=== PATIENT | female | born 1955 | race Caucasian/White ===

== ENCOUNTER → 2020-03-18 15:45 | Outpatient (CLI) | payer OTHER, SELFPAY ==
[2020-03-18 16:38] LABS: COVID19 -Nasal RAPID Negative (Negative)
== END ==
PROVIDERS: PCP Family Medicine; Visit Provider Physician Assistant
DX: Z20.822 Contact with and (suspected) exposure to COVID-19 (principal); R05 Cough; R51.9 Headache, unspecified
CPT/HCPCS: 87635

== ENCOUNTER → 2020-05-09 08:08 | Outpatient (CLI) | payer OTHER, SELFPAY ==
[2020-05-09 08:41] LABS: Add Manual Diff / Slide Review NO; Basophils Absolute Auto 100 /uL (0-100); Basophils Percent Auto 1.2 % (0-2); Eosinophils Absolute Auto 300 /uL (0-450); Eosinophils Percent Auto 4.6 % (2-4); Hematocrit 42.8 % (36-46); Hemoglobin 14.3 g/dL (12.0-16.0); Lymphocytes Absolute Auto 2700 /uL (1100-4500); Lymphocytes Percent Auto 49.2 % (25-40); Mean Corpuscular HGB Conc 33.4 % (30-36); Mean Corpuscular Hemoglobin 29.8 PG (26-34); Mean Corpuscular Volume 89.1 fL (80-100); Monocytes Absolute Auto 400 /uL (0-900); Monocytes Percent Auto 7.9 % (3-14); Neutrophils Absolute Auto 2000 /uL (1500-7000); Neutrophils Percent Auto 37.1 % (50-75); Platelet Count 240 X10^3/uL (150-400); Red Cell Distribution Width 13.8 % (11.6-14.8); White Blood Cell Count 5.5 X10^3/uL (4.5-11.0)
[2020-05-09 08:49] LABS: Hemoglobin A1C% w Est Avg Glu 5.8 % (4.0-6.0)
[2020-05-09 09:24] LABS: Alanine Aminotransferase 22 IU/L (<35); Albumin 4.7 g/dL (3.5-5.0); Albumin Globulin Ratio 1.6 (1.0-2.8); Alkaline Phosphatase 53 U/L (38-126); Aspartate Aminotransferase 24 IU/L (14-36); BUN Creatinine Ratio 20.8 (6-22); Bilirubin Total 0.7 mg/dL (0.2-1.3); Blood Urea Nitrogen 20 mg/dL (7-17); Calcium 9.6 mg/dL (8.4-10.2); Carbon Dioxide 30 mmol/L (22-32); Chloride 103 mmol/L (98-107); Cholesterol 275 mg/dL (140-199); Estimated Glomerular Filt Rate 58.9 mL/min (>60); Gamma Glutamyl Transpeptidase 23 U/L (12-43); Globulin 2.9 g/dL (1.7-4.1); Glucose 95 mg/dL (80-110); HDL Cholesterol 85 mg/dL (40-60); HEMOLYSIS < 15 (0-50); LDL Cholesterol Calculated 174 mg/dL (<100); Potassium 4.2 mmol/L (3.4-5.1); Sodium 138 mmol/L (137-145); Total Protein 7.6 g/dL (6.3-8.2); Triglycerides 80 mg/dL (35-150)
[2020-05-09 09:28] LABS: High Sensitivity CRP - Cardiac 3.1 mg/L (1.0-3.0)
[2020-05-09 09:42] LABS: Free T4, Direct Thyroxine 0.69 ng/dL (0.78-2.19)
[2020-05-09 09:56] LABS: Thyroid Stimulating Hormone 1.42 uIU/mL (0.47-4.68)
[2020-05-09 09:58] LABS: Ferritin 70 ng/mL (11-264)
[2020-05-10 05:37] LABS: Thyroid Peroxidase Antibodies 18 IU/mL (0-34)
[2020-05-10 08:36] LABS: Insulin Level Total 12.5 uIU/mL (2.6-24.9)
== END ==
PROVIDERS: PCP Family Medicine; Referring Provider Naturopath; Visit Provider Naturopath
DX: R53.82 Chronic fatigue, unspecified (principal); E03.9 Hypothyroidism, unspecified; F41.1 Generalized anxiety disorder; K59.00 Constipation, unspecified; R00.2 Palpitations; J30.89 Other allergic rhinitis
CPT/HCPCS: 36415; 80053; 80061; 82728; 82977; 83036; 83525; 84439; 84443; 85025; 86140; 86376

== ENCOUNTER → 2020-08-12 10:11 | Outpatient (CLI) | payer OTHER, SELFPAY ==
[2020-08-12 11:40] LABS: Free T3, Triiodothyronine Free 6.05 pg/mL (2.77-5.27); Free T4, Direct Thyroxine 0.87 ng/dL (0.78-2.19)
[2020-08-12 11:52] LABS: Thyroid Stimulating Hormone 0.069 uIU/mL (0.47-4.68)
== END ==
PROVIDERS: PCP Family Medicine; Referring Provider Naturopath; Visit Provider Naturopath
DX: E03.9 Hypothyroidism, unspecified (principal); K59.00 Constipation, unspecified; R00.2 Palpitations; R53.82 Chronic fatigue, unspecified
CPT/HCPCS: 36415; 84439; 84443; 84481

== ENCOUNTER → 2020-11-19 07:50 | Outpatient (CLI) | payer OTHER, SELFPAY ==
[2020-11-19 10:09] LABS: Hemoglobin A1C% w Est Avg Glu 5.5 % (4.0-6.0)
[2020-11-19 10:48] LABS: High Sensitivity CRP - Cardiac 3.6 mg/L (1.0-3.0)
[2020-11-19 11:08] LABS: Free T3, Triiodothyronine Free 6.18 pg/mL (2.77-5.27)
[2020-11-19 11:21] LABS: Thyroid Stimulating Hormone 0.688 uIU/mL (0.47-4.68)
[2020-11-19 14:33] LABS: Free T4, Direct Thyroxine 0.79 ng/dL (0.78-2.19)
[2020-11-20 08:53] LABS: Insulin Level Total 11.9 uIU/mL (2.6-24.9); Triiodothyronine T3 Total 90 ng/dL (71-180)
[2020-11-24 11:36] LABS: Triiodothyronine T3 Reverse 11.1 ng/dL (9.2-24.1)
== END ==
PROVIDERS: PCP Family Medicine; Referring Provider Naturopath; Visit Provider Naturopath
DX: E03.9 Hypothyroidism, unspecified (principal); R53.82 Chronic fatigue, unspecified; K59.00 Constipation, unspecified; R00.2 Palpitations; J30.89 Other allergic rhinitis
CPT/HCPCS: 36415; 83036; 83525; 84439; 84443; 84480; 84481; 84482; 86140

== ENCOUNTER → 2021-10-22 09:06 | Outpatient (CLI) | payer OTHER, MEDICAID, SELFPAY ==
[2021-10-22 10:09] LABS: Hemoglobin A1C% w Est Avg Glu 5.7 % (4.0-6.0)
[2021-10-22 10:33] LABS: Glucose 91 mg/dL (80-110)
[2021-10-22 10:37] LABS: High Sensitivity CRP - Cardiac 4.4 mg/L (1.0-3.0)
[2021-10-22 11:06] LABS: TSH w/ Reflex to FT4 1.49 uIU/mL (0.47-4.68)
[2021-10-22 11:07] LABS: Free T3, Triiodothyronine Free 4.25 pg/mL (2.77-5.27)
[2021-10-23 06:00] LABS: Insulin Level Total 12.4 uIU/mL (2.6-24.9)
[2021-10-23 07:47] LABS: Triiodothyronine T3 Total 43 ng/dL (71-180)
== END ==
PROVIDERS: PCP Naturopath; Referring Provider Naturopath; Visit Provider Naturopath
DX: E03.9 Hypothyroidism, unspecified (principal); R53.82 Chronic fatigue, unspecified; K59.00 Constipation, unspecified; R00.0 Tachycardia, unspecified; J30.89 Other allergic rhinitis
CPT/HCPCS: 36415; 82947; 83036; 83525; 84443; 84480; 84481; 84482; 86140

== ENCOUNTER → 2022-12-02 09:16 | Outpatient (CLI) | payer MEDICARE, OTHER, MEDICAID, SELFPAY ==
[2022-12-02 11:30] LABS: Cholesterol 253 mg/dL (140-199); Glucose 92 mg/dL (80-110); HDL Cholesterol 75 mg/dL (40-60); LDL Cholesterol Calculated 161 mg/dL (<100); Triglycerides 87 mg/dL (35-150)
[2022-12-02 11:33] LABS: High Sensitivity CRP - Cardiac 4.2 mg/L (1.0-3.0)
[2022-12-02 11:58] LABS: Free T3, Triiodothyronine Free 4.89 pg/mL (2.77-5.27); Free T4, Direct Thyroxine 0.83 ng/dL (0.78-2.19)
[2022-12-02 12:11] LABS: Thyroid Stimulating Hormone 0.606 uIU/mL (0.47-4.68)
[2022-12-02 12:32] LABS: Hemoglobin A1C% w Est Avg Glu 5.5 % (4.0-6.0)
[2022-12-04 07:52] LABS: Insulin Level Total 13.4 uIU/mL (2.6-24.9)
== END ==
PROVIDERS: PCP Naturopath; Referring Provider Naturopath; Visit Provider Naturopath
DX: R53.82 Chronic fatigue, unspecified (principal); E03.9 Hypothyroidism, unspecified
CPT/HCPCS: 36415; 80061; 82947; 83036; 83525; 84439; 84443; 84481; 86140

== ENCOUNTER → 2023-09-30 12:39 | Outpatient (ROUT) | payer MEDICARE, SELFPAY | PROVIDERS: PCP Naturopath; Visit Provider Dermatology | DX: R21 Rash and other nonspecific skin eruption (principal) | CPT/HCPCS: 87102 ==

== ENCOUNTER → 2023-09-30 12:51 | Outpatient (ROUT) | payer MEDICARE, SELFPAY | PROVIDERS: PCP Naturopath; Visit Provider Dermatology | DX: R21 Rash and other nonspecific skin eruption (principal) | CPT/HCPCS: 87070; 87075; 87077; 87102; 87107; 87147; 87205 ==